=== PATIENT | female | born 1965 | race Caucasian/White ===

== ENCOUNTER 2017-12-23 10:48 | Emergency (ER) | payer OTHER ==
[2017-12-23 10:59] VITALS: BP 128/68
--- NOTE | 2017-12-23 11:29 | UC ---
Abdominal Pain Female HPI - HPI Summary HPI Summary: 52 yo female presents with fever for the last 4 days. She tells me that 4 days ago she developed a fever, but felt fine otherwise. This fever has been persisting since that time. Has been taking tylenol with good relief of the fever. Yesterday was the only day she did not feel well - in the morning she experienced generalized abdominal cramping, felt weak, and tired. She took a nap and felt great when she woke up. No similar symptoms since that time ( yesterday). Today she woke up and says the fever is still there. Over the last 4 days she says her temperature has been ranging from 99F to 101F. She has been bitten by a tick within the last 6 months, but says she is fairly confident it was not on her longer than overnight. Never noticed a bull's eye rash. Denies headache, dizziness, cough, SOB, chest pain, abdominal pain, n/v/d/c, dysuria, flank pain, or rash. - History of Current Complaint Hx Obtained From: Patient Hx Last Menstrual Period: 12/14/17 Severity Initially: Mild Severity Currently: Mild Pain Intensity: 4 <Almas Keith - Last Filed: 12/23/17 12:14> <Jadon Alarcon - Last Filed: 12/23/17 13:57> - History of Current Complaint Chief Complaint: UCGeneralIllness Stated Complaint: FEVER Time Seen by Provider: 12/23/17 11:28 Allergies/Adverse Reactions: Allergies Allergy/AdvReac Type Severity Reaction Status Date / Time Sulfa (Sulfonamide Allergy unk Verified 12/23/17 11:00 Antibiotics) Home Medications: Home Medications Vit B12/Intrinsic Fact/Folate [Intrinsi E37-Hsmjlp Tablet] 1 tab PO DAILY [History Confirmed 12/23/17] Vit D3/Folic Acid/B2/B6/B12 [Folgard Tablet] 1 tab PO DAILY 12/23/17 [History Confirmed 12/23/17] PMH/Surg Hx/FS Hx/Imm Hx - Additional Past Medical History Additional PMH: None - Surgical History Surgical History: None - Family History Known Family History: Positive: None - Social History Occupation: Employed Full-time Lives: With Family Alcohol Use: None Substance Use Type: None Smoking Status (MU): Never Smoked Tobacco <Almas Keith Filed: 12/23/17 12:14> Review of Systems Constitutional: Fever Skin: Negative Eyes: Negative ENT: Negative Respiratory: Negative Cardiovascular: Negative Gastrointestinal: Negative Genitourinary: Negative Motor: Negative Neurovascular: Negative Musculoskeletal: Negative Neurological: Negative Psychological: Negative All Other Systems Reviewed And Are Negative: Yes <Paul Keithothy Filed: 12/23/17 12:14> Physical Exam - Summary Physical Exam Summary: GENERAL: NAD. WDWN. No pain distress. SKIN: No rashes, sores, or open wounds. HEENT: Head: AT/NC Eyes: PERRLA. EOM intact. Conjunctiva clear without inflammation or discharge. Ears: Hearing grossly normal. TMs intact, no bulging, erythema, or edema. Nose: Nasal mucosa pink and moist. NTTP maxillary and frontal sinus. Throat: Posterior oropharynx without exudates, erythema, or tonsillar enlargement. Uvula midline. NECK: Supple. Nontender. No lymphadenopathy. CHEST: CTAB. No r/r/w. No accessory muscle use. Breathing comfortably and in no distress. CV: RRR. Without m/r/g. Pulses intact. Brisk cap refill. ABDOMEN: Soft. NTTP. No distention or guarding. No CVA tenderness. Bowel sounds present MSK: FROM and 5/5 strength throughout. No edema. NEURO: Alert. CN II-XII grossly intact. PSYCH: Age appropriate behavior. Triage Information Reviewed: Yes Vital Signs: Initial Vital Signs Temp 97.7 F 12/23/17 10:56 Pulse 93 12/23/17 10:56 Resp 18 12/23/17 10:56 BP 128/68 12/23/17 10:56 Pulse Ox 99 12/23/17 10:56 Laboratory Tests 12/23/17 12/23/17 11:52 12:01 POC Glucose (mg/dL) 110 H POC Urine Color Yellow POC Urine Clarity Clear POC Urine pH 6.0 POC Ur Specif [place] 1.025 POC Urine Protein 1+ A POC Ur Glucose (UA) Negative POC Urine Ketones 1+ A POC Urine Blood Negative POC Urine Nitrite Negative POC Urine Bilirubin 1+ A POC Urine Urobilinogen 0.2 POC U Leukocyte Esteras Negative <Almas Keith - Last Filed: 12/23/17 12:14> Vital Signs: Initial Vital Signs Temp 97.7 F 12/23/17 10:56 Pulse 93 12/23/17 10:56 Resp 18 12/23/17 10:56 BP 128/68 12/23/17 10:56 Pulse Ox 99 12/23/17 10:56 <Jadon Alarcon - Last Filed: 12/23/17 13:57> Abd Pain Female Course/Dx - Course Course Of Treatment: EKG shows NSR 73 bpm with incomplete RBBB no ST changes as read by Dr. Alarcon. UA is negative for infection. POC glucose is WNL. She is currently afebrile and her last dose of tylenol was 8 hours ago. I will draw for CBC, CMP, TSH, and lyme and have her f/u with her PCP as soon as possible. If worse or new symptoms go to ED. - Differential Dx/Diagnosis Provider Diagnoses: Fever. Fatigue <Almas Keith - Last Filed: 12/23/17 12:14> Discharge - Sign-Out/Discharge Documenting (check all that apply): Discharge/Admit/Transfer - Billing Disposition and Condition Condition: STABLE Disposition: Home <Almas Keith - Last Filed: 12/23/17 12:14> - Billing Disposition and Condition Condition: STABLE Disposition: Home <Jadon Alarcon - Last Filed: 12/23/17 13:57> - Discharge Plan Condition: Stable Disposition: HOME Patient Education Materials: Lyme Disease (ED), Fever in Adults (ED) Referrals: Dena Solis MD [Primary Care Provider] - As Soon As Possible Additional Instructions: If you develop a fever, shortness of breath, chest pain, new or worsening symptoms - please call your PCP or go to the ED. 1) Please schedule a follow up appointment with Dr. Solis as soon as possible to follow up with your lab results and further investigation of your symptoms. 2) If your abdominal pain returns or if you experience new or worsening symptoms - please go to the ER
[2017-12-23 14:01] LABS: Hematocrit 36 % (35-47); Hemoglobin 11.8 g/dl (12.0-16.0); Mean Corpuscular HGB Conc 32 g/dl (31-36); Mean Corpuscular Hemoglobin 23 pg (27-31); Mean Corpuscular Volume 70 fL (80-97); Mean Platelet Volume 8.3 um3 (7.4-10.4); Platelet Count 348 10^3/ul (150-450); Red Blood Count 5.22 10^6/ul (4.00-5.40); Red Cell Distribution Width 18 % (10.5-15); White Blood Count 4.1 10^3/ul (3.5-10.8)
[2017-12-23 14:18] LABS: EGFR Non-African American 58.7 (>60)
[2017-12-23 15:12] LABS: Monocytes % 8 % (0-7)
[2017-12-23 15:13] LABS: ABS Lymphocytes 0.6 10^3/ul (1.0-4.8); ABS Neutrophils 3.2 10^3/ul (1.5-7.7)
[2017-12-23 15:14] LABS: ABS Basophils 0 10^3/ul (0-0.2); ABS Eosinophils 0 10^3/ul (0-0.6); ABS Monocytes 0.3 10^3/ul (0-0.8); ABS Nucleated RBC 0 10^3/ul; Eosinophil % 0.2 % (0-6); Lymphocyte % 15.4 % (25-47)
[2017-12-23 15:15] LABS: Nucleated Red Blood Cells % 0
--- NOTE | 2017-12-24 13:52 | UC ---
- Progress Note Progress Note: call patient and assure she has arranged follow up care with Dr. 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 1) Please schedule a follow up appointment with Dr. Solis as soon as possible to follow up with your lab results and further investigation of your symptoms. 2) If your abdominal pain returns or if you experience new or worsening symptoms - please go to the ER - Billing Disposition and Condition Condition: STABLE Disposition: Home
--- NOTE | 2017-12-25 13:30 | UC ---
- Progress Note Progress Note: reviewed labs - pt with TIBC, 5% iron sat Pt instructed to f/u with Dr. Davis No change to management plans ljj 12/25/2017 Discharge - Sign-Out/Discharge Documenting (check all that apply): Post-Discharge Follow Up - Discharge Plan Condition: Stable Disposition: HOME Patient Education Materials: Lyme Disease (ED), Fever in Adults (ED) Referrals: Dena Solis MD [Primary Care Provider] - As Soon As Possible Additional Instructions: If you develop a fever, shortness of breath, chest pain, new or worsening symptoms - please call your PCP or go to the ED. 1) Please schedule a follow up appointment with Dr. Solis as soon as possible to follow up with your lab results and further investigation of your symptoms. 2) If your abdominal pain returns or if you experience new or worsening symptoms - please go to the ER - Billing Disposition and Condition Condition: STABLE Disposition: Home
--- NOTE | 2017-12-25 19:48 | UC ---
- Progress Note Progress Note: Please call pt to inform of negative Lyme results. Discharge - Sign-Out/Discharge Documenting (check all that apply): Discharge/Admit/Transfer - Discharge Plan Condition: Stable Disposition: HOME Patient Education Materials: Lyme Disease (ED), Fever in Adults (ED) Referrals: Dena Solis MD [Primary Care Provider] - As Soon As Possible Additional Instructions: If you develop a fever, shortness of breath, chest pain, new or worsening symptoms - please call your PCP or go to the ED. 1) Please schedule a follow up appointment with Dr. Solis as soon as possible to follow up with your lab results and further investigation of your symptoms. 2) If your abdominal pain returns or if you experience new or worsening symptoms - please go to the ER - Billing Disposition and Condition Condition: STABLE Disposition: Home
== END 2017-12-23 12:14 | disposition home or self-care (01) ==
LOC: UCEAST 10:48
DX: R50.9 Fever, unspecified (principal); R10.84 Generalized abdominal pain; R53.83 Other fatigue; Z88.2 Allergy status to sulfonamides
CPT/HCPCS: 36415; 80053; 81003; 82728; 83540; 83550; 84443; 85025; 86618; 93005; 99211; G0463

== ENCOUNTER 2018-05-10 08:26 | Day surgery (SDC) | payer OTHER ==
[~2018-05-10 08:26] MED LIST: Buffered Lidocaine 0.9% SYRIN* 5 ML/SYR SYRINGE INTRADERM ONE; Dexamethasone IV* 4 MG/ML 1 ML (4 MG) IV SLOW PU ONE; Dexamethasone IV* 4 MG/ML 1 ML (4 MG) ONE; Famotidine IV* 10 MG/ML 2 ML (20 mg) IV ONE; Famotidine IV* 10 MG/ML 2 ML (20 mg) ONE
[2018-05-10 09:22] LABS: Hematocrit 46 % (35-47); Hemoglobin 15.7 g/dl (12.0-16.0); Mean Corpuscular HGB Conc 34 g/dl (31-36); Mean Corpuscular Hemoglobin 30 pg (27-31); Mean Corpuscular Volume 89 fL (80-97); Mean Platelet Volume 8.2 fL (7.4-10.4); Platelet Count 300 10^3/ul (150-450); Red Blood Count 5.19 10^6/ul (4.00-5.40); Red Cell Distribution Width 14 % (10.5-15); White Blood Count 5.5 10^3/ul (3.5-10.8)
[2018-05-10] MEDS ORDERED: Silver Nitrate/Potassium Nitr* 1 EA STICK ONE (10:51)
[2018-05-10] MEDS ORDERED: Acetaminophen TAB* 325 MG PO PRN (10:54)
[2018-05-10] MEDS ORDERED: Naloxone* 0.4 MG/ML 1 ML VIAL IV PRN (10:54)
[2018-05-10] MEDS ORDERED: fentaNYL* 50 MCG/ML 2 ML VIAL (100 MCG VIAL) IV PRN (10:54)
[2018-05-10] MEDS ORDERED: DiMENhydriNATE IV* 50 MG/ML VIAL IV PUSH PRN (10:54)
[2018-05-10] MEDS ORDERED: HYDROcodone/ACETAMIN 5-325 MG* 1 TAB PO PRN (10:54)
[2018-05-10] MEDS ORDERED: Ketorolac INJ* 30 MG/ML 1 ML VIAL ONE (11:00)
[2018-05-10] MEDS ORDERED: Lidocaine 2% PF * 5 ML VIAL ONE (11:00)
[2018-05-10] MEDS ORDERED: Propofol* 10 MG/ML 20 ML BTL IV PUSH ONE (11:00)
[2018-05-10] MEDS ORDERED: fentaNYL* 50 MCG/ML 2 ML VIAL (100 MCG VIAL) ONE ×2 (11:09→11:41)
[2018-05-10] MEDS ORDERED: EPHEDrine (Pressors)* 50 MG/ML VIAL ONE (11:23)
[2018-05-10] MEDS ORDERED: Ondansetron INJ* 2 MG/ML VIAL ONE (11:33)
[2018-05-10] MEDS ORDERED: Ibuprofen TAB* 600 MG PO PRN (12:04)
[2018-05-10] MEDS ORDERED: Acetaminophen TAB* 325 MG ONE (12:18)
[2018-05-10 12:51] VITALS: BP 123/68
--- NOTE | 2018-05-11 02:35 | OP ---
CC: Dr. Hickman, [facility] OPERATIVE REPORT: DATE OF OPERATION: DATE OF : 69 SURGEON: Dr. Hickman PRE-OP DIAGNOSES: 1. Heavy vaginal bleeding. 2. Endometrial polyp on biopsy. 3. Fibroid uterus. POST-OP DIAGNOSES: 1. Heavy vaginal bleeding. 2. Endometrial polyp on biopsy. 3. Fibroid uterus. OPERATIVE PROCEDURE: 1. Dilation hysteroscopy, curettage. 2. MyoSure polypectomy. CENTRAL STERILE TECHNICIAN: Dr. Graff. ANESTHESIA: General endotracheal anesthesia. ESTIMATED BLOOD LOSS: Less than 20 cc. SPECIMEN: Endometrial curettings and polyp. FLUIDS: Per anesthesia. Fluid deficit 290 cc from the MyoSure. FINDINGS: Enlarged asymmetric uterus 14 to 16 week size. Midline cervix. No adnexal masses palpated, but the pelvic exam is limited by the size of the uterus. The endocervical canal deviated to the patient's right. A polyp was seen coming down from the fundus. It appeared long and thin. Complications none. Sponge counts correct x2. The patient was brought to recovery room, awake and in stable condition. DESCRIPTION OF PROCEDURE: The patient was brought to the operating room. When general anesthesia was found to be adequate the patient was prepped and draped in the usual sterile fashion in the dorsal lithotomy position. Time-out was performed. Exam under anesthesia was performed. The weighted speculum was placed in the vagina. The anterior lip of the cervix was grasped with the single tooth tenaculum and the cervix was gently dilated with the graduated Hegar dilator. The canal deviates to the patient's right. The uterus sounds to 7. The MyoSure was introduced. The polyp was seen floating originating from the top down to the level of the internal os. This was removed with the MyoSure LITE. The MyoSure was removed. Endometrial curettage was performed with the thin curette and endometrial curettings in addition to the portion of polyp were sent to Pathology. At this point the single toothed tenaculum was removed from the anterior lip of the cervix. Excellent hemostasis was noted and the patient was brought to the recovery room awakened in stable condition. [id number]/[facility] #: [id number] [facility] HEALTHTez
== END 2018-05-10 13:36 | disposition home or self-care (01) ==
LOC: OR 08:26
PROVIDERS: ATTEND Obstetrics & Gynecology
DX: N92.1 Excessive and frequent menstruation with irregular cycle (principal); N84.0 Polyp of corpus uteri; D25.9 Leiomyoma of uterus, unspecified; D64.9 Anemia, unspecified
CPT/HCPCS: 36415; 81025; 85027; 86850; 86900; 86901; 88305; A9270-GY; J1100; J1885; J2405; J2704; J3010

== ENCOUNTER 2018-05-16 10:45 | Observation (INO) | payer OTHER ==
[2018-05-16] MEDS ORDERED: Ondansetron INJ* 2 MG/ML VIAL ONE ×2 (11:13→12:59)
[2018-05-16] MEDS ORDERED: Scopolamine 1.5 mg* PATCH ONE (11:13)
[2018-05-16] MEDS ORDERED: Naproxen TAB* 250 MG ONE (11:13)
[2018-05-16] MEDS ORDERED: LORazepam TAB(*) 1 MG ONE (11:13)
[2018-05-16] MEDS ORDERED: oxyCODONE SR TAB(*) 10 MG TAB.SR ONE (11:14)
[2018-05-16 11:49] LABS: EGFR Non-African American 63.6 (>60)
[2018-05-16] MEDS ORDERED: Clindamycin 900 MG/D5W BAG(*) 900 MG/50 ML BAG IVPB ONE (12:00)
[2018-05-16] MEDS ORDERED: HYDROmorphone PCA* 20 MG/20 ML PCA.SYRING PCA SCH (12:00)
[2018-05-16] MEDS ORDERED: HYDROmorphone PCA* 20 MG/20 ML PCA.SYRING ONE (12:20)
[2018-05-16] MEDS ORDERED: Flumazenil* 0.1 MG/ML 5 ML MDV ONE (12:59)
[2018-05-16] MEDS ORDERED: Midazolam* 1 MG/ML 10 ML VIAL (10 MG) ONE (12:59)
[2018-05-16] MEDS ORDERED: Naloxone* 0.4 MG/ML 1 ML VIAL ONE (12:59)
[2018-05-16] MEDS ORDERED: fentaNYL* 50 MCG/ML 5 ML VIAL (250 MCG VIAL) ONE (12:59)
[2018-05-16] MEDS ORDERED: Ketorolac INJ* 30 MG/ML 1 ML VIAL ONE ×2 (12:59→13:01)
[2018-05-16] MEDS ORDERED: Lidocaine 1% INJ* 10 MG/ML 30 ML SDV ONE (13:00)
[2018-05-16] MEDS ORDERED: Iohexol 350 (CONTRAST) 200 ML MDV IV ONE (13:00)
[2018-05-16] MEDS ORDERED: nitroGLYCERIN DRIP* 25,000 MCG/250 ML BTL ONE (13:00)
[2018-05-16] MEDS ORDERED: Heparin 2 UNITS/ML IVPREMIX* 3,000 ML IV ONE (13:02)
[2018-05-16] MEDS ORDERED: VERAPAMIL 2.5 MG/ML 2 ML VIAL ** 5 mg/2 ml ONE (13:08)
[2018-05-16] MEDS ORDERED: Heparin(*) 1000 UNIT/ML 10 ML VIAL CATH LAB IV ONE (13:08)
[2018-05-16] MEDS ORDERED: HYDROmorphone INJ1* 1 MG/ML SYRINGE ONE (15:36)
[2018-05-16] MEDS ORDERED: Acetaminophen TAB* 325 MG PO PRN (16:16)
[2018-05-16] MEDS ORDERED: Ondansetron INJ* 2 MG/ML VIAL IV PRN (16:16)
[2018-05-16] MEDS: Ketorolac INJ* 15 MG/ML 1 ML VIAL IV PUSH SCH (20:23)
--- NOTE | 2018-05-16 20:28 | HP ---
CC: Dr. Dena Solis; Dr. Singh * HISTORY AND PHYSICAL: DATE OF ADMISSION: 05/16/18 PRIMARY CARE PROVIDER: Dena Solis MD ATTENDING PHYSICIAN WHILE IN THE HOSPITAL: Radha Valenzuela MD * (report dictated by Link Middleton NP) CHIEF COMPLAINT: Uterine fibroids. HISTORY OF PRESENT ILLNESS: Mrs. Lara is a 53-year-old female patient who has been having heavy menstrual bleeding and has a history of uterine fibroids. She underwent care with Dr. Singh for this. She was noted to be having issues with again heavy bleeding. In addition to this, was having trouble with anemia and also pain as well. She sought care with Dr. Singh and he felt a uterine fibroid embolization would benefit her and the patient underwent that today. She was evaluated in the PACU. She states she is not having any chest pain. She denies any shortness of breath. She does admit to lower abdominal cramping and pain. She denies any nausea. Denies chest pain, shortness of breath. She states she does feel tired. She does carry a history of anemia, history of EtOH abuse, she has not drank in over 10 years, and history of uterine fibroid. PAST MEDICAL HISTORY: Significant for: 1. Uterine fibroid. 2. Anemia. 3. Remote history of EtOH abuse. MEDICATIONS: Home meds include: 1. Propranolol 10 mg daily. 2. Multivitamin 1 tablet daily. 3. Astepro 2 sprays both nares b.i.d. ALLERGIES TO MEDICATIONS: Include SULFA DRUGS. PAST SURGICAL HISTORY: She has had a D and C and she had a uterine fibroid embolization today. FAMILY HISTORY: Mother had Parkinson's. Father had a history of hypertension. SOCIAL HISTORY: She does not smoke. She does not drink. She does have a former history, but does not drink currently. Surrogate decision maker is her sister. REVIEW OF SYSTEMS: There is no documented fever. She denies having any significant weight change. There is no double vision. There is no ear discharge. She denies having any rhinorrhea. There is no sore throat. No thyroid enlargement. Denied having any chest pain. There is no orthopnea. There is no nocturnal dyspnea. She does admit to lower abdominal cramping. She denies any nausea. There is no vomiting. There is no dysuria, no frequency. No seizure, no loss of consciousness. No pruritus and no skin ulcerations. Review of 14 systems completed, all others negative. PHYSICAL EXAMINATION GENERAL: At this time, Mrs. Lara is a 53-year-old female patient. She is sitting in the PACU bed. She does not appear to be in any acute distress. She appears to be well nourished and well developed. VITAL SIGNS: Blood pressure 121/69, pulse 43, respirations 18, O2 saturation 98 %, temperature 97.7. HEENT: Head: Atraumatic and normocephalic. Eyes: EOMs are intact. Sclerae anicteric and not pale. Throat: Oral mucosa appears to be moist. No oropharyngeal erythema. NECK: Supple. LUNGS: Clear to auscultation. No wheezes, rales, rhonchi. HEART: Sounds S1, S2. She had a regular rate and rhythm. There are no murmurs , rubs, or gallops. ABDOMEN: Soft. It was flat. There was tenderness in the lower abdomen. EXTREMITIES: Pulses were 2+ throughout. Distal CSM checks were intact to the lower legs. NEUROLOGICAL: She is awake, alert, oriented x3. No gross focal deficits. SKIN: She does have an incision to the right groin, there is no drainage noted. LABORATORY DATA/DIAGNOSTIC STUDIES: Labs preop, WBC 5.9, RBC of 5.19, hemoglobin 15.7, hematocrit 46, platelet count of 300. Sodium of 136, potassium of 4, chloride 105, bicarb 22, BUN 16, creatinine 0.93, glucose 104. EKG shows a normal sinus rhythm, rate of 73, normal axis, no ST elevations or T wave inversions. Old medical records were reviewed. ASSESSMENT AND PLAN: Mrs. Lara is a 53-year-old female patient presenting to Dr. Singh's service for uterine fibroid embolization. We were asked to evaluate for admission. She will be admitted under observation status for: 1. Uterine fibroid embolization. We will defer the management to Dr. Singh. 2. Anemia. H and H was stable preop. We will monitor. 3. History of EtOH abuse. Not an active issue. 4. DVT prophylaxis: I have ordered SCDs. 5. Code status: Full code. 6. Fluids, electrolytes, and nutrition: She can have a regular diet. TIME SPENT: On the admission was 60 minutes, greater than half the time spent face- to-face with the patient obtaining my history and physical; other half time spent going over the plan of care with the patient and implementing plan of care. I did discuss the plan of care with my attending, Dr. Valenzuela; she is in agreement. [place]INK [place] NP [id number]/[facility] #: [id number] [place]
[2018-05-16] MEDS: Ondansetron INJ* 2 MG/ML VIAL IV SCH (22:14)
[2018-05-16] MEDS: NS 0.9% 1000 ML* 1,000 ML IV SCH (23:11)
[2018-05-17] MEDS: Ketorolac INJ* 15 MG/ML 1 ML VIAL IV PUSH SCH ×2 (03:13→10:15)
[2018-05-17] MEDS: Ondansetron INJ* 2 MG/ML VIAL IV SCH (03:16)
--- NOTE | 2018-05-17 08:44 | PN ---
Progress Note - Progress Note Date of Service: 05/17/18 SOAP: Subjective: Pain rated at 6/10. Denies nausea or emesis. + void after Ornelas removed last night. + ambulated without issue. Denies pain at the left wrist or right groin. Objective: Selected Entries 05/17/18 07:23 Temperature 98.5 F Temperature Oral Source Pulse Rate 87 Respiratory 16 Rate Blood Pressure 127/70 (mmHg) Blood Pressure 81 Mean O2 Sat by Pulse 96 Oximetry NAD, AAO x 3 Abd is soft, nontender to palpation. No guarding or rebound tenderness. Left wrist is soft, nontender, 2+ left radial pulse Right groin is soft, nontender, dressing is C/D/I Neuromuscular function is grossly intact at left hand and RLE 2+ pulses at right BREAST SURGEON, pop and DPA Assessment: 53 YOF POD #1 status post Uterine Fibroid Arterial Embolization with pain and nausea controlled. Though she rates her pain as 6/10 she is resting comfortably and no pain is elicited with palpation over the uterus. Plan: 1. Transition from IV to PO medications after patient takes PO breakfast. 2. Ambulate with assistance 3. Outpatient Rx regimen will include: Toradol 10 mg PO Q 6 hours x 3 days, dispense #15, 1 refill AFTER 3 days of Toradol, start Naproxen 250 mg PO every 12 hours x 3 days (DO NOT COMBINE TORADOL AND NAPROXEN) [place] 5/325 1 or 2 tablets PO Q 6 hours PRN x 5 days, dispense #30 (thirty), no refills Zofran 4 mg PO Q 6 hours x 5 days, dispense #30, 1 refill Scopoloamine 1.5 mg TD patch: on the morning of Sunday, replace current patch with new patch and wear x 3 days 4. The patient is strongly advised to drink one cup of laxative tea (for example , Smooth Move) daily for at least one week to avoid painful constipation.
[2018-05-17] MEDS ORDERED: HYDROcodone/ACETAMIN 5-325 MG* 1 TAB PO PRN (08:45)
[2018-05-17] MEDS ORDERED: Ondansetron TAB* 4 MG PO SCH (09:00)
[2018-05-17] MEDS ORDERED: Docusate CAP* 100 MG PO SCH (09:00)
[2018-05-17] MEDS ORDERED: Propranolol TAB* 10 MG PO SCH ×2 (09:00)
[2018-05-17] MEDS: NS 0.9% 1000 ML* 1,000 ML IV SCH (09:06)
[2018-05-17] MEDS ORDERED: Ketorolac TAB * 10 MG TAB PO SCH (10:00)
--- NOTE | 2018-05-17 10:29 | PN ---
Subjective Date of Service: 05/17/18 Interval History: Pt resting comfortably in bed, not in acute distress. Says surgical pain is well controlled on current regimen, comes and goes but not more than 3/10. Denies R groin pain or L wrist pain. Had one episodes of nausea earlier which resolved with zofran. No vomiting. Denies chest pain, shortness of breath, headache. Reports ambulating with steady gait and without dizziness. Objective Active Medications: Acetaminophen (Tylenol Tab*) 650 mg PO Q4H PRN PRN Reason: FEVER/PAIN Hydrocodone Bitart/Acetaminophen ([place] 5-325 Tab*) 2 tab PO Q6H PRN PRN Reason: PAIN Stop: 05/24/18 08:44 Last Admin: 05/17/18 09:36 Dose: 2 tab Docusate Sodium (Colace Cap*) 200 mg PO BID [facility] Last Admin: 05/17/18 09:35 Dose: 200 mg Sodium Chloride (Ns 0.9% 1000 Ml*) 1,000 mls @ 100 mls/hr IV PER RATE [facility] Last Admin: 05/17/18 09:06 Dose: 100 mls/hr Ketorolac Tromethamine (Toradol Tab *) 10 mg PO Q6H [facility] Stop: 05/20/18 09:59 Ondansetron HCl (Zofran Inj*) 4 mg IV Q6H PRN PRN Reason: NAUSEA Ondansetron HCl (Zofran Tab*) 4 mg PO Q6H [facility] Stop: 05/24/18 08:59 Last Admin: 05/17/18 09:36 Dose: 4 mg Propranolol HCl (Inderal Tab*) 10 mg PO DAILY [facility] Last Admin: 05/17/18 09:38 Dose: Not Given Vital Signs - 8 hr 05/17/18 05/17/18 05/17/18 03:21 04:16 06:26 Temperature 99.0 F Pulse Rate 70 Respiratory 16 16 18 Rate Blood Pressure 117/56 (mmHg) O2 Sat by Pulse 98 98 96 Oximetry 05/17/18 05/17/18 05/17/18 07:23 08:00 09:36 Temperature 98.5 F Pulse Rate 87 Respiratory 16 16 18 Rate Blood Pressure 127/70 (mmHg) O2 Sat by Pulse 96 96 Oximetry Oxygen Devices in Use Now: Nasal Cannula Eyes: No Scleral Icterus, PERRLA Ears/Nose/Mouth/Throat: NL Teeth, Lips, Gums, Clear Oropharnyx, Mucous Membranes Moist Neck: NL Appearance and Movements; NL JVP, Trachea Midline Respiratory: Symmetrical Chest Expansion and Respiratory Effort, Clear to Auscultation Cardiovascular: NL Sounds; No Murmurs; No JVD, RRR, No Edema Abdominal: NL Sounds; No Tenderness; No Distention, - - No pelvic tenderness to palpation Extremities: No Edema, No Clubbing, Cyanosis, - - 2+ PT and DP pulses. CSM intact to BLE and BUE. R groin soft and dressing CDI. Left wrist dressing CDI as well. Skin: No Rash or Ulcers, No Nodules or Sclerosis Neurological: Alert and Oriented x 3, NL Sensation, NL Muscle Strength and Tone Lines/Tubes/Other Access: Clean, Dry and Intact Peripheral IV Nutrition: Taking PO's Result Diagrams: 05/16/18 11:10 Assess/Plan/Problems-Billing Assessment: 53 year old female with PMH uterine fibroids, anemia, s/p uterine fibroid artery embolization with Dr. Singh yesterday. - Patient Problems (1) Status post embolization of uterine artery Current Visit: Yes Status: Acute Code(s): Z98.890 - OTHER SPECIFIED POSTPROCEDURAL STATES SNOMED Code(s): 321690502 Comment: - POD 1 S/p uterine fibroid arterial embolization with Dr Singh - Pain control, nausea control, and bowel regimen per Dr. Singh (2) DVT prophylaxis Current Visit: Yes Status: Acute Code(s): EKJ7085 - SNOMED Code(s): 901265198 Comment: - SCDs + Pt is ambulatory (3) Full code status Current Visit: Yes Status: Acute Code(s): Z78.9 - OTHER SPECIFIED HEALTH STATUS SNOMED Code(s): 884877941 Status and Disposition: Patient is stable for discharge home today. Attending: Radha Valenzuela
[2018-05-17 11:26] VITALS: BP 135/69
--- NOTE | 2018-05-17 21:26 | DS ---
CC: Dena Solis MD; Deepak Singh MD * DISCHARGE SUMMARY: DATE OF ADMISSION: 05/16/18 DATE OF DISCHARGE: 05/17/18 ATTENDING PHYSICIAN: Radha Valenzuela MD * (dictated by Magalis Benz NP). PRIMARY CARE PROVIDER: Dena Solis MD SURGICAL PROVIDER: Deepak Singh MD PRIMARY DIAGNOSIS: Status post uterine fibroid arterial embolization. DISCHARGE MEDICATIONS: 1. Propranolol 10 mg p.o. daily. 2. Multivitamin 1 tab p.o. daily. 3. Astepro 2 sprays both nares b.i.d. New medications upon discharge: 1. [place] 5/325 tablet 1 to 2 tablets p.o. q.6 hours p.r.n. for 5 days. 2. Toradol 10 mg p.o. q.6 hours for 3 days. 3. Naproxen 250 mg p.o. q.12 hours, to start only after the course of Toradol has been finished. Naproxen treatment should occur for 3 additional days. 4. Zofran 4 mg p.o. q.6 hours for 5 days. 5. Scopolamine 1.5 mg patch to be placed on the morning of 05/19/18. After removal of current patch, she should wear the new patch for 3 days. HOSPITAL COURSE: The patient is a 53-year-old female with a past medical history of uterine fibroids and heavy menstrual bleeding, following with Dr. Singh. She was noted to have ongoing issues with heavy bleeding as well as anemia and pain. She was evaluated by Dr. Singh, who recommended a uterine fibroid embolization, which she under-went yesterday, 05/16/18. No complications were noted with the procedure. On the day of discharge, the patient was resting comfortably in her bed, in no acute distress. She reported that her pain was well controlled on the current regimen and she was not experiencing nausea or vomiting. She denies chest pain, shortness of breath, headache, and was ambulating with a steady gait and without dizziness. The patient is stable for discharge to home and will follow up with Dr. Singh. DIET: Regular diet. ACTIVITY: Per Dr. Singh, the patient is instructed to avoid strenuous exercise and activity for 1 week, slowly increasing activity after the first week. The patient is also instructed to avoid vaginal intercourse and tampon usage for 4 weeks, not to drive until she is no longer taking prescription pain medications. She may resume showering, but avoid tub baths, hot tubs or swimming for 1 week. FOLLOWUP: A nurse from the IR clinic will call the patient in 2 to 3 days and 1 week post discharge to inquire about her home recovery. She will see Dr. Singh in the IR clinic approximately 6 weeks from the date of her procedure and then again in 6 months from the procedure. At that time, she will also have additional followup imaging. TIME SPENT: Time spent for this discharge was approximately 35 minutes. MAGALIS BENZ NP [id number]/[facility] #: [id number] [place]
== END 2018-05-17 13:15 | disposition home or self-care (01) ==
LOC: CHICATH 10:45 → SSU 18:28
PROVIDERS: ADMIT Internal Medicine; ATTEND Radiology Diagnostic Radiology
DX: D25.9 Leiomyoma of uterus, unspecified (principal); D64.9 Anemia, unspecified; Z86.59 Personal history of other mental and behavioral disorders; R11.0 Nausea; Z98.890 Other specified postprocedural states
CPT/HCPCS: 36415; 37243; 76937; 80048; 84702; 96374; 96375; 96376; 99156; 99157; A9270-GY; C1769; C1884; C1887; C1894; G0378; J1170; J1644; J1885; J2250; J2310; J2405; J3010